=== PATIENT | male | born 2000 | race Caucasian/White ===

== ENCOUNTER 2019-04-09 08:44 | Day surgery (SDC) | payer OTHER ==
[~2019-04-09] VITALS: Ht 172.7 cm; Wt 60.6 kg
[~2019-04-09 08:44] MED LIST: NO ACTIVE MEDS
[2019-04-09 09:26] VITALS: Ht 172.7 cm; Wt 60.6 kg
[2019-04-09 09:45] VITALS: BP 132/63; PULSE 113; RESP 23
[2019-04-09] MEDS ORDERED: MIDAZOLAM 1 MG/ML 2 ML INJ ONE ×3 (10:33)
[2019-04-09] MEDS ORDERED: FENTAnyl 50 MCG/ML VIAL ONE (10:33)
[2019-04-09 10:49] VITALS: BP 112/57; PULSE 80; RESP 15
== END 2019-04-09 11:04 | disposition home or self-care (01) ==
LOC: GIL 08:44
PROVIDERS: ATTEND Internal Medicine Gastroenterology
DX: K92.1 Melena (principal); K51.20 Ulcerative (chronic) proctitis without complications; K64.4 Residual hemorrhoidal skin tags
CPT/HCPCS: 45380; 88305; J2250; J3010; Z7610